=== PATIENT | male | born 1945 | race Caucasian/White ===

== ENCOUNTER 2017-07-19 02:00 | Emergency (ER) | payer MEDICARE, OTHER ==
[2017-07-19] MEDS ORDERED: NORMAL SALINE 500 ML IV.SOLN IV ONE (02:12)
[2017-07-19] MEDS ORDERED: 0.9 % SODIUM CHLORIDE 1,000 ML IV ONE (02:22)
[2017-07-19 02:30] LABS: MEAN CORPUSCULAR HEMOGLOBIN 32.6 pg (28.0-34.0); MEAN CORPUSCULAR VOLUME 96.3 fl (80.0-100.0)
[2017-07-19 02:47] LABS: eGFR (African) > 60; eGFR (Non-African) > 60
[2017-07-19 02:58] LABS: BASOPHILS % 1 % (0-2); EOSINOPHILS % 1 % (0-7); MONOCYTES % 8 % (0-11); SEGMENTED NEUTROPHILS % 66 % (39-79)
--- NOTE | 2017-07-19 03:00 | ED Physician Documentation ---
Upper Respiratory Symptoms - HISTORIAN Historian: patient - HPI Stated Complaint: Shortness of Breath/Fever Chief Complaint: Cough/ Upper Respiratory Onset: other (last night) Associated Symptoms: fever, chills, productive cough, shortness of breath Further Comments: yes (72 year old male patient presents with complaint of cough , congestion, fever, body aches which started last night. Patient denies recent history of pneumonia.) - ROS CONST/EYES: weakness. denies: eye redness, eye itching CVS/RESP: shortness of breath, other (cough). denies: chest pain, palpitations LYMPH: denies: leg swelling, rash, swollen glands, ankle swelling, other GI/: none NEURO/PSYCH: denies: fainting, dizziness, confusion, anxiety, depression, other MS/SKIN: denies: joint pain, muscle aches, rash, other - PAST HX Lung Disease: COPD, other (sleep apnea - wears CPAP at night) Other History: A-Fib, hypertension Allergies/Adverse Reactions: Allergies Allergy/AdvReac Type Severity Reaction Status Date / Time CT dye AdvReac Unknown Hives Uncoded 07/19/17 02:20 Home Medications: Ambulatory Orders Medication Instructions Recorded Albuterol Sulfate [Proventil Hfa] 2 inhalation IH Q 4-6 HRS #1 ih 05/03/14 Budesonide/Formoterol Fumarate 10.2 gm IH BID 05/03/14 [Symbicort 160-4.5 Mcg Inhaler] Lisinopril [Zestril] 40 mg PO BID u2 05/03/14 Metolazone 10 mg PO DAILY u2 05/03/14 Nifedipine [Nifedical Xl] 60 mg PO DAILY u2 05/03/14 Omeprazole 20 mg PO DAILY 05/03/14 Rosuvastatin Calcium [Crestor] 40 mg PO DAILY u2 05/03/14 Spironolactone 25 mg PO DAILY u2 05/03/14 Tiotropium [place] [Spiriva] 18 mcg IH DAILY 05/03/14 Warfarin Sodium [Coumadin] 5 mg PO DAILY u2 05/03/14 Benzonatate [Tessalon Perles] 200 mg PO TID #30 capsule 07/19/17 Levofloxacin [Levaquin] 750 mg PO DAILY #7 tablet 07/19/17 Oseltamivir Phosphate [Tamiflu] 75 mg PO BID #10 capsule 07/19/17 - SOCIAL HX Smoking History: non-smoker - FAMILY HX Family History: denies: none - VITAL SIGNS Vital Signs: Vital Signs Temp Pulse Resp BP Pulse Ox 99 F 77 20 144/62 92 07/19/17 05:20 07/19/17 05:20 07/19/17 05:20 07/19/17 05:20 07/19/17 05:20 - REVIEWED ASSESSMENTS Nursing Assessment Reviewed: Yes Vitals Reviewed: Yes Progress - Progress Progress: Patient medicated with 1L NS, tylenol and 750mg of levaquin. RA Sat remain 91-94%. Patient reports he uses CPAP at night. reviewed discharge instructions with patient, verbalized understanding. Instructed to make appointment this week for INR recheck and re-evaluation. Instructed to return to ER if symptoms became worse ED Results Lab/Radiology - Lab Results Lab Results: Lab Results 07/19/17 07/19/17 07/19/17 02:20 02:20 02:20 WBC 5.20 K/ul K/ul (4.00-12.00) RBC 4.01 M/ul M/ul (3.90-5.20) Hgb 13.1 g/dL g/dL (12.0-18.0) Hct 38.6 % % (37.0-53.0) MCV 96.3 fl fl (80.0-100.0) MCH 32.6 pg pg (28.0-34.0) MCHC 33.8 g/dL g/dL (30.0-36.0) RDW 12.8 % % (11.3-14.3) Plt Count 165 K/mm3 K/mm3 (130-400) Seg Neutrophils % 66 % % (39-79) Band Neutrophils % 2 % % (0-12) Lymphocytes % 22 % % (16-50) Monocytes % 8 % % (0-11) Eosinophils % 1 % % (0-7) Basophils % 1 % % (0-2) Plt Morphology Comment Normal (NORMAL) RBC Morph Comment Normal (NORMAL) PT 32.6 Seconds H Seconds (9.4-11.6) INR 3.07 H (0.9-1.2) Sodium 133 mmol/L L mmol/L (136-145) Potassium 4.3 mmol/L mmol/L (3.5-5.1) Chloride 98 mmol/L mmol/L (98-107) Carbon Dioxide 25 mmol/L mmol/L (22-30) BUN 24 mg/dL H mg/dL (9-20) Creatinine 1.20 mg/dL mg/dL (0.66-1.25) Estimated Creat Clear 91 Est GFR ( Amer) > 60 (60 - ) Est GFR (Non-Af Amer) > 60 (60 - ) Glucose 83 mg/dL mg/dL (74-106) Calcium 8.8 mg/dL mg/dL (8.4-10.2) Total Bilirubin 0.2 mg/dL mg/dL (0.2-1.3) AST 40 U/L U/L (15-46) ALT 38 U/L U/L (13-69) Alkaline Phosphatase 67 U/L U/L (38-126) Total Protein 7.5 g/dL g/dL (6.3-8.2) Albumin 3.9 g/dL g/dL (3.5-5.0) - Radiology Radiology Impressions: PA and lateral chest Clinical history: PRODUCTIVE COUGH, FEVER X1 DAY Findings: Examination of the chest in PA and lateral views with no prior films for comparison demonstrates patchy infiltrate in right perihilar region and right middle lobe. Lungs are hyperinflated. Cardiac silhouette is enlarged and aorta is atherosclerotic. Monitor leads superimpose the chest. Bilateral shoulder replacements are evident. Impression: 1 right perihilar and right middle lobe infiltrate. 2. Cardiomegaly and aortic atherosclerosis. Electronically signed on Jul 19, 2017 2:51:28 AM SENIOR TRAINING AND DEVELOPMENT REP by: Star Javed - Orders Orders: ED Orders Category Date Time Status Place IV Lock 1T Care 07/19/17 02:15 Active CHEST P.A.&LAT 2 VIEWS [RAD] Stat Exams 07/19/17 Ordered BLOOD CULTURE Stat Lab 07/19/17 02:12 Received CBC/PLATELET/DIFF Routine Lab 07/19/17 02:20 Completed CMP Routine Lab 07/19/17 02:20 Completed INFLUENZA A&B Stat Lab 07/19/17 02:20 Ordered INR [PT-INR] Routine Lab 07/19/17 02:20 Completed 0.9 % Sodium Chloride [Normal Saline] Med 07/19/17 02:12 Once 1,000 ml IV NOW ONE 0.9 % Sodium Chloride [Normal Saline] 1,000 ml Med 07/19/17 02:22 Discontinued IV .STK-MED Acetaminophen [Tylenol Extra Strength] Med 07/19/17 03:10 Discontinued 1,000 mg PO NOW ONE Ipratropium/Albuterol Sulfate [Duoneb] Med 07/19/17 03:06 Discontinued 3 ml NEB .STK-MED ONE Ipratropium/Albuterol Sulfate [Duoneb] Med 07/19/17 03:05 Discontinued 3 ml NEB STAT STA Levofloxacin 250Mg/D5w 50Ml [Levaquin] 250 mg Med 07/19/17 03:06 Discontinued Premix Bag [Premix Fluid] 1 bag IV NOW Levofloxacin 250Mg/D5w 50Ml [Levaquin] 50 ml Med 07/19/17 03:06 Discontinued IV .STK-MED Levofloxacin 500Mg/D5w 100Ml [Levaquin] 100 ml Med 07/19/17 03:06 Discontinued IV .STK-MED Levofloxacin 500Mg/D5w 100Ml [Levaquin] 500 mg Med 07/19/17 03:06 Discontinued Premix Bag [Premix Fluid] 1 bag IV NOW EKG WITH COMPARISON Stat Ther 07/19/17 02:15 Ordered Upper Respiratory Symptoms - EXAM General Appearance: mild distress EENT: eyes nml inspection, nml ENT inspection, lids & conjunct. nml, PERRL, ear nml, nose nml, airway nml, pharyngeal erythema Respiratory: no resp. 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 Stay away from others while you have a cold or flu. Take simple painkillers Such as Tylenol or ibuprofen, to help relieve headaches, muscles aches and pains and fever. Keep hydrated (drink plenty of fluids) This will help keep your throat moist and replace fluid lost due to a fever and sweating. Plenty of water is best. Avoid caffeine and alcohol as they will make you more dehydrated. Eat soft food If you have a sore throat soft foods are easier to swallow. Foods such as chicken soup may help a sore throat and reduce mucous (sticky fluid). coupler an over the counter decongestant such as pseudoped, dayquil and Nyquil at your pharmacy. You may want to try Vicks rub on your chest and/or feet. ( Caution: Dayquil and Nyquil contain 325mg of Tylenol/acetaminophen per tablespoon) Cough drops as needed for cough and sore throat. Increase your fluid intake juices, hot tea, non-caffeinated beverages Vitamin C may be helpful in decreasing the length of your cold. Use a humidifier in the room where you sleep. You can also sit in a steam filled bathroom 1-2 times a day. Tylenol every 4 hours 650mg -1000mg (do not exceed 4000mg in 24 hours) as needed for fever, pain and body aches. See your primary care doctor in the next 3-4 days for a recheck of your INR and re-evaluation. coupler your prescriptions at [facility] this morning. Start your Tamiflu today. Start the antibiotic tomorrow, you were given your first dose in the ER. Condition: Stable Disposition: 01 HOME, SELF-CARE Decision to Admit: NO Decision Time: 04:57
[2017-07-19] MEDS ORDERED: IPRATROPIUM/ALBUTEROL SULFATE 3 ML AMPUL.NEB NEB STA (03:05)
[2017-07-19] MEDS ORDERED: LEVOFLOXACIN 500MG/D5W 100ML 100 ML IV ONE (03:06)
[2017-07-19] MEDS ORDERED: LEVOFLOXACIN 500MG/D5W 100ML 500 MG in PREMIX BAG 1 BAG IV ONE (03:06)
[2017-07-19] MEDS ORDERED: IPRATROPIUM/ALBUTEROL SULFATE 3 ML AMPUL.NEB NEB ONE (03:06)
[2017-07-19] MEDS ORDERED: LEVOFLOXACIN 250MG/D5W 50ML 50 ML IV ONE (03:06)
[2017-07-19] MEDS ORDERED: LEVOFLOXACIN 250MG/D5W 50ML 250 MG in PREMIX BAG 1 BAG IV ONE (03:06)
[2017-07-19] MEDS ORDERED: ACETAMINOPHEN 500 MG TABLET PO ONE (03:10)
[2017-07-19 05:21] VITALS: BP 144/62
--- NOTE | 2017-07-19 05:42 | Diagnostic Imaging Report ---
[facility] [address] [facility].[address] [address] Report Submission Date: Jul 18, 2017 10:29:19 AM FLOW TRADER Patient Study Name: NATHANIEL BEAUCHAMP Date: Jul 18, 2017 10:15:01 AM FLOW TRADER Modality Type: CR Gender: M Description: CHEST : [birth year] Institution: [facility] Physician: BRUCE WARREN (DIGITAL MEDIA COORDINATOR) - ER Ap portable upright radiographs of the chest Clinical history: Coughing and wheezing Technique: anterior /posterior portable upright Findings: The lung odonnell are clear. The heart is not enlarged. .. The bony thorax is unremarkable. No pneumothorax or pleural effusion is seen. Impression: No acute pulmonary infiltrate Electronically signed on Jul 18, 2017 10:29:19 AM FLOW TRADER by: Benjamín MICHAELS
== END 2017-07-19 05:20 | disposition home or self-care (01) ==
LOC: ED 02:00
DX: J10.08 Influenza due to other identified influenza virus with other specified pneumonia (principal); J44.1 Chronic obstructive pulmonary disease with (acute) exacerbation; G47.30 Sleep apnea, unspecified; Z99.89 Dependence on other enabling machines and devices; I48.91 Unspecified atrial fibrillation; I11.9 Hypertensive heart disease without heart failure; I70.0 Atherosclerosis of aorta
CPT/HCPCS: 71020; 80053; 85025; 85610; 87040; 87400; 93005; 94640; 96361; 96365; 99283; 99284; J1956; J7030; S1016